=== PATIENT | male | born 1970 | race Caucasian/White ===

== ENCOUNTER 2025-06-20 08:42 | Day surgery (SDC) | payer OTHER ==
[2025-06-20] VITALS (16 sets, daily range): BP systolic 90–142; BP diastolic 67–88
[~2025-06-20] VITALS: Ht 188 cm; Wt 91.4 kg
[~2025-06-20 08:42] MED LIST: ALBU90OI INH; AMOCLA875 PO; HUMULIN R100 UNIT/2 SC; HYDACE5 PO; HYDCHL25 PO; IBUP800; INSULIN GL100 UNIT/2 SC; METO25 PO; NICO2 PO; NICODERM CQ TOP; OXYACE5T PO; PENVK500 PO; PROCODE120 PO; Prinivil10 MG PO; Tambocor100 MG PO; VISBIOME 112.51 EACH PO; Ventolin5 MG/1 ML INH; XARELTO20 M1 PO
--- NOTE | 2025-06-20 09:30 | NUR ---
06/20/25 0930 Danya Martins History, Chart, Medications and Allergies reviewed before start of procedure. 3-LEAD EKG REVIEWED WITH PHYSICIAN PRIOR TO START OF PROCEDURE. MONITOR INTACT WITH CONTINUOUS PULSE OXIMETRY, CONTINUOUS END TITAL CO2, 3-LEAD EKG AND INTERMITTENT BLOOD PRESSURE. O2 VIA POM INTACT THROUGHOUT SEDATION/PROCEDURE. PATIENT DETERMINED TO BE ASA APPROPRIATE FOR PROPOFOL SEDATION PRIOR TO START OF PROCEDURE BY .
--- NOTE | 2025-06-20 10:01 | NUR ---
REPORT RECEIVED FROM ENIO MEJIA. VSS. PT ON RA. PT ABLE TO REPOSITION SELF IN BED. PT REQUESTING PO FLUIDS AND TOLERATING THEM WELL. PT DENIES PAIN, NAUSEA OR OTHER DISCOMFORTS.
== END 2025-06-20 10:18 | disposition home or self-care (01) ==
LOC: ORSCMMR 08:42 → ORD 09:30 → ORSCMMR 10:18
PROVIDERS: Internal Medicine Gastroenterology
PROC: 0DBP8ZX Excision of Rectum, Via Natural or Artificial Opening Endoscopic, Diagnostic (ICD-10-PCS; principal; 2025-06-20 09:30)
DX: Z12.11 Encounter for screening for malignant neoplasm of colon (principal); K63.5 Polyp of colon; K57.30 Diverticulosis of large intestine without perforation or abscess without bleeding; I48.91 Unspecified atrial fibrillation; E11.9 Type 2 diabetes mellitus without complications; I10 Essential (primary) hypertension; Z87.891 Personal history of nicotine dependence; Z79.01 Long term (current) use of anticoagulants; Z79.899 Other long term (current) drug therapy
CPT/HCPCS: 82947; 88305; J2704; J7120